=== PATIENT | female | born 1960 | race Caucasian/White ===

== ENCOUNTER 2020-05-05 16:29 | Outpatient (REF) | payer OTHER, SELFPAY | END 2020-05-05 16:30 | disposition home or self-care (01) | LOC: HO.LAB 16:29 | PROVIDERS: Visit Provider Internal Medicine | DX: Z20.828 Contact with and (suspected) exposure to other viral communicable diseases (principal) | CPT/HCPCS: C9803; U0003 ==

== ENCOUNTER 2020-10-10 07:22 | Outpatient (REF) | payer OTHER, SELFPAY ==
[2020-10-10 12:04] LABS: Anion Gap 12 (12-20); Blood Urea Nitrogen 19 mg/dL (9-16); Calcium 8.7 mg/dL (8.4-10.2); Carbon Dioxide 25 mmol/L (22-29); Chloride 107 mmol/L (96-108); Cholesterol 195 mg/dL; Estimated Glomerular Filt Rate > 60; Glucose Fasting 87 mg/dL (60-99); HDL Cholesterol 52 mg/dL; LDL Cholesterol Calculated 119 mg/dl; Potassium 4.2 mmol/L (3.3-5.1); Sodium 140 mmol/L (135-145); Triglycerides 123 mg/dL
[2020-10-10 12:09] LABS: Vitamin D 25-OH Total 24.6 ng/mL (>30)
== END 2020-10-10 07:23 | disposition home or self-care (01) ==
LOC: HO.HMGCLDS 07:22
PROVIDERS: PCP Internal Medicine; Visit Provider Internal Medicine
DX: Z00.00 Encounter for general adult medical examination without abnormal findings (principal); I10 Essential (primary) hypertension; E66.9 Obesity, unspecified; Z78.0 Asymptomatic menopausal state
CPT/HCPCS: 36415; 80048; 80061; 82306

== ENCOUNTER → 2020-11-09 10:28 | Outpatient (BNVA) | payer OTHER, SELFPAY | PROVIDERS: PCP Internal Medicine; Referring Provider Internal Medicine; Visit Provider Surgery ==

== ENCOUNTER 2020-12-22 07:53 | Day surgery (SDC) | payer OTHER, SELFPAY ==
[2020-12-15 13:18] VITALS: BMI 32.8
--- NOTE | 2020-12-21 08:31 | HO.ANESPROP2 ---
Documented by User: Pema Amezcuaney 12/21/20 08:32 HPI - Anesthesia Eval Consult details Narrative: 60yo F for Excision of Neck Mass PMFSH Active Problems Active Problems: All Active Problems (Updated 11/09/20 @ 10:53 by Jovany Hamilton MD) Lipoma of neck (Acute) Vitamin D deficiency (Acute) Past Medical History Medical History History of COVID-19 Lipoma of neck Vitamin D deficiency Family History Family History Father No problems noted. Mother No problems noted. Family/Other No problems noted. Maternal Aunt Colon cancer Surgical History Surgical History History of bunionectomy Hx of colonoscopy Hx of total hysterectomy Social History Social History Alcohol intake: current Patient Tobacco Use Status: Former Tobacco user Years Smoked: 5 yrs Use of substances other than those prescribed or required for medical reasons: No Have you been hit, kicked, punched, or otherwise hurt by someone within the past year? If so, by whom?: No Are you DNR?: No Advance Directives: No Advance Directives Information Provided: Yes Patient : Yes Meds Allergies Allergy/AdvReac Type Severity Reaction Status Date / Time No Known Allergies Allergy Verified 11/09/20 10:35 [No Known Allergies*] Home Medications Medication Instructions Recorded Confirmed Last Taken Type cholecalciferol (vitamin D3) 100 100 mcg PO DAILY 11/09/20 Unknown History mcg (4,000 unit) tablet Exam Exam Date and Time: December 21, 2020 0831 Height,Weight and Vital Signs: Height 5 ft 3 in Weight 83.915 kg Pertinent Lab Results Pertinent Lab Results: Laboratory Tests 10/10/20 07:26 Sodium 140 Potassium 4.2 Chloride 107 Carbon Dioxide 25 BUN 19 H Creatinine 0.69 Assessment and Plan Assessment Anesthesia Assessment: Chart Reviewed Documented by User: Ewa Whitt MD 12/22/20 09:16 PMFSH Past Medical History Medical History History of COVID-19 Lipoma of neck Vitamin D deficiency Patient : Yes Family History Family History Father No problems noted. Mother No problems noted. Family/Other No problems noted. Maternal Aunt Colon cancer Surgical History Surgical History History of bunionectomy Hx of colonoscopy Hx of total hysterectomy History of Problems with Anesthesia: No Social History Social History Alcohol intake: current Patient Tobacco Use Status: Former Tobacco user Years Smoked: 5 yrs Use of substances other than those prescribed or required for medical reasons: No Have you been hit, kicked, punched, or otherwise hurt by someone within the past year? If so, by whom?: No Are you DNR?: No Advance Directives: No Advance Directives Information Provided: Yes Patient : Yes Meds Allergies Allergy/AdvReac Type Severity Reaction Status Date / Time No Known Allergies Allergy Verified 11/09/20 10:35 [No Known Allergies*] Home Medications Medication Instructions Recorded Confirmed Last Taken Type cholecalciferol (vitamin D3) 100 100 mcg PO DAILY 11/09/20 Unknown History mcg (4,000 unit) tablet Exam Airway Mallampati Class: II TM Dist: >3cm Neck ROM: Full Partial: Lower Loose/Missing/Broken Teeth: Yes and Lower Heart: RRR Lungs: CTA Assessment and Plan Assessment Anesthesia Assessment: Anesthesia Plan Discussed Final Anesthetic Review History of Problems with Anesthesia: No NPO: Yes ASA Class: I Final Preanesthetic Review: Meds/Allgs Chart Reviewed, Consent Obtained/Reviewed and Anes Risks/Benef Reviewed Patient Risk: Low Procedure Risk: Intermediate Anesthetic Plan Anesthetic Plan: MAC: Disposition: Standard PACU
[2020-12-22 08:05] VITALS: BP 138/86; PULSE 69; RESP 18; TEMP 36.7; O2SAT 97
[2020-12-22 08:11] VITALS: BMI 32.2
[2020-12-22] MEDS: Lactated Ringers 1,000 ML 100 ML IVCONT (08:25)
--- NOTE | 2020-12-22 09:23 | MHC.SHP ---
Pre-Procedural Eval Section A Date of Service: 12/22/20 Section B Chief Complaint: Lipoma of Neck Allergies: Allergies Allergy/AdvReac Type Severity Reaction Status Date / Time No Known Allergies Allergy Verified 11/09/20 10:35 [No Known Allergies*] Plan I have reviewed the history and physical and performed a pertinent physical examination on my patient. No changes have occurred unless specified.
--- NOTE | 2020-12-22 10:02 | W.PM.OPN ---
Operative Note Operative Note Date of Service: 12/22/20 Narrative: Preop diagnosis: Lipoma posterior neck Postop diagnosis: Lipoma posterior neck Procedure: Excision of lipoma from the posterior neck Surgeon: Jovany Hamilton MD statistical assistant: JOSIE Baker The patient is a 60 year female with note of a mass on the posterior neck consistent with lipoma. She understood the technique of excision and she was aware the risks, benefits, and alternatives. She wanted to proceed with this under anesthesia in view of the size and location. She was brought to the operating room and placed in prone position under monitored anesthesia care. The area of the lipoma the posterior neck was prepped and draped. A surgical time-out had been done and the patient received cefazolin 2 g IV preoperatively. Lidocaine 1% was used to infiltrate the planned line of incision I then made at the incision on the skin overlying the lipoma using a blade 15 and this was carried down through the full-thickness of skin and subcutaneous fat with electrocautery. We continued to dissect with this method until was able to visualize lipomatous mass. I then sharply dissected the lipomatous mass off of the rest of the subcutaneous layer and posteriorly using Metzenbaum scissors as well as with the electrocautery. I the lipoma posteriorly from all the fibrous adhesions until was delivered and sent as specimen The lipoma measured about 5.5 cm by 4 cm. I related the area of excision. I reapposed the subcutaneous layer with Dexon 3-0 sutures. Skin closure was achieved with Dexon 4-0 subcuticular running sutures. Steri-Strips and dressings were applied The patient tolerated the procedure well. There were no complications noted. She was then transferred to the recovery room with stable vital signs
--- NOTE | 2020-12-22 10:05 | PM.OP ---
Brief Operative Note Date of Service: 12/22/20 Pre-op diagnosis: Lipoma posterior neck Post-op diagnosis: same Procedure: Excision lipoma posterior neck Surgeon: Jovany Hamilton MD Anesthesia: MAC Was an Cupola Operator Insulation used for this Procedure?: Yes Cupola Operator Insulation: Usha Baker Estimated blood loss (mL): 3 Pathology: other (Lipoma) Condition: stable Disposition: PACU
[2020-12-22 10:17] VITALS: BP 107/62; PULSE 68; RESP 16; TEMP 36.1; O2SAT 97
[2020-12-22 10:32] VITALS: BP 117/63; PULSE 52; RESP 17; TEMP 36.1; O2SAT 99
== END 2020-12-22 11:03 | disposition home or self-care (01) ==
PROVIDERS: PCP Internal Medicine; Visit Provider Surgery
PROC: (CPT 21552; principal; 2020-12-22 09:30)
DX: D17.0 Benign lipomatous neoplasm of skin and subcutaneous tissue of head, face and neck (principal); E55.9 Vitamin D deficiency, unspecified; Z79.899 Other long term (current) drug therapy; Z87.891 Personal history of nicotine dependence; Z86.16 Personal history of COVID-19
CPT/HCPCS: 21552; 88304; J0690; J1100; J2250; J2405; J3010

== ENCOUNTER → 2021-01-03 10:31 | Outpatient (BNVA) | payer OTHER, SELFPAY | PROVIDERS: PCP Internal Medicine; Visit Provider Surgery ==

== ENCOUNTER → 2021-01-11 09:13 | Outpatient (BNVA) | payer OTHER, SELFPAY | PROVIDERS: PCP Internal Medicine; Visit Provider Surgery ==

== ENCOUNTER 2021-03-05 14:48 | Outpatient (REF) | payer OTHER, SELFPAY ==
--- NOTE | ~2021-03-05 | XR_ITS ---
EXAMINATION: XR KNEE, LEFT CLINICAL INFORMATION: Left knee pain. COMPARISON: None TECHNIQUE: AP, lateral, and sunrise views of the left knee. FINDINGS: Mild medial compartment joint space narrowing. Tiny medial and patellofemoral compartment marginal osteophytes. No osseous erosion. No abnormal soft tissue calcification. No significant joint effusion. No acute fracture or dislocation. XR/XR knee LT 3V IMPRESSION: Mild medial and patellofemoral compartment osteoarthritis.
== END 2021-03-05 14:49 | disposition home or self-care (01) ==
LOC: HO.HMGCX 14:48
PROVIDERS: PCP Internal Medicine; Visit Provider Physician Assistant Medical
DX: M25.562 Pain in left knee (principal)
CPT/HCPCS: 73562

== ENCOUNTER 2021-03-28 08:21 | Outpatient (REF) | payer OTHER, SELFPAY ==
--- NOTE | ~2021-03-28 | XR_ITS ---
EXAMINATION: XR KNEE AP STANDING CLINICAL INFORMATION: Pain COMPARISON: Left knee x-ray February 2018 TECHNIQUE: AP bilateral standing view of the knees was obtained. FINDINGS: Bone alignment is normal. No fracture or dislocation is seen. There is mild bilateral medial femoral tibial joint space narrowing. XR/XR knee standing BI IMPRESSION: Mild bilateral medial femoral tibial joint space narrowing.
== END 2021-03-28 08:22 | disposition home or self-care (01) ==
LOC: HO.HOSX 08:21
PROVIDERS: Visit Provider Physician Assistant
DX: M17.12 Unilateral primary osteoarthritis, left knee (principal); M25.561 Pain in right knee
CPT/HCPCS: 73565

== ENCOUNTER 2021-10-16 07:14 | Outpatient (REF) | payer OTHER, SELFPAY ==
[2021-10-16 12:15] LABS: Alanine Aminotransferase 17 U/L (0-31); Anion Gap 11 (12-20); Aspartate Amino Transferase 13 U/L (5-31); Blood Urea Nitrogen 21 mg/dL (9-16); Calcium 9.3 mg/dL (8.4-10.2); Carbon Dioxide 25 mmol/L (22-29); Chloride 108 mmol/L (96-108); Cholesterol 220 mg/dL; Estimated Glomerular Filt Rate > 60; Glucose Fasting 106 mg/dL (60-99); HDL Cholesterol 51 mg/dL; LDL Cholesterol Calculated 146 mg/dl; Potassium 4.3 mmol/L (3.3-5.1); Sodium 140 mmol/L (135-145); Triglycerides 117 mg/dL
== END 2021-10-16 07:15 | disposition home or self-care (01) ==
LOC: HO.HMGCLDS 07:14
PROVIDERS: Visit Provider Internal Medicine
DX: Z00.01 Encounter for general adult medical examination with abnormal findings (principal); N95.9 Unspecified menopausal and perimenopausal disorder; E55.9 Vitamin D deficiency, unspecified
CPT/HCPCS: 36415; 80048; 80061; 82306; 84450; 84460

== ENCOUNTER 2022-10-19 07:58 | Outpatient (REF) | payer BC, SELFPAY ==
--- NOTE | ~2022-10-19 | MM_ITS ---
EXAMINATION: MM SCREENING DIGITAL BREAST TOMOSYNTHESIS, BILATERAL CLINICAL INFORMATION: Screening. Asymptomatic. The lifetime risk of breast cancer based on the Tyrer-Cuzick Model is 3%. COMPARISON: Outside mammography: 10/29/2021, 10/28/2020, 06/01/2019 ([facility]) TECHNIQUE: Digital breast tomosynthesis is performed in both the craniocaudal and mediolateral oblique views along with computer-aided detection (CAD). Synthesized 2D images are generated from the tomosynthesis. FINDINGS: The breasts are almost entirely fatty (ACR BI-RADS breast composition Category a). Background stromal markings are normal. No developing density or architectural abnormality. There are scattered incidental bilateral ductal secretory calcifications. There are no significant masses, abnormal calcifications, or other abnormalities. The axilla and skin contours are unremarkable. No significant changes from prior outside exams. MM/MM tomosynthesis screening BI IMPRESSION: No mammographic evidence of malignancy. ASSESSMENT: BI-RADS 2: Benign RECOMMENDATION: Routine annual mammography screening. This patient's information was entered into a reminder system with a target due date for their next mammogram.
== END 2022-10-19 07:59 | disposition home or self-care (01) ==
LOC: HO.MAMMO 07:58
PROVIDERS: PCP Internal Medicine; Visit Provider Internal Medicine
DX: Z12.31 Encounter for screening mammogram for malignant neoplasm of breast (principal)
CPT/HCPCS: 77063; 77067

== ENCOUNTER 2022-10-28 07:11 | Outpatient (REF) | payer BC, SELFPAY ==
[2022-10-28 11:48] LABS: Estimated Average Glucose 103 mg/dL; Hemoglobin A1c % 5.2 %
[2022-10-28 11:50] LABS: Cholesterol 212 mg/dL; Glucose Fasting 99 mg/dL (60-99); HDL Cholesterol 50 mg/dL; LDL Cholesterol Calculated 141 mg/dl; Triglycerides 108 mg/dL
[2022-10-28 12:11] LABS: Vitamin D 25-OH Total 33.2 ng/mL (>30)
== END 2022-10-28 07:12 | disposition home or self-care (01) ==
LOC: HO.HMGCLDS 07:11
PROVIDERS: PCP Internal Medicine; Visit Provider Internal Medicine
DX: Z00.01 Encounter for general adult medical examination with abnormal findings (principal); E66.9 Obesity, unspecified; E78.5 Hyperlipidemia, unspecified; E89.40 Asymptomatic postprocedural ovarian failure; M17.12 Unilateral primary osteoarthritis, left knee; R73.01 Impaired fasting glucose
CPT/HCPCS: 36415; 80061; 82306; 82947; 83036

== ENCOUNTER 2023-07-04 11:36 | Outpatient (AMB) | payer BC, SELFPAY ==
--- NOTE | 2023-07-04 12:17 | A.OFFPC_ITS ---
Vital Signs 07/04/23 12:22 Height 5 ft 3 in Weight 200 lb BMI 35.4 BP 130/80 Blood Pressure Location Rt brachial Position Sitting Pulse 81 Pulse Source Pulse Oximeter Pulse Oximetry (%) 97 Oxygen Delivery Method Room Air Intake Visit Reasons: Left knee pain Intake Note: Pt is here today c/o Lt knee pain on going pain since several months Allergies No Known Allergies [No Known Allergies*] Allergy (Verified 07/04/23 12:39) Medication List - Last Reconciled 07/04/23 by Daina Simpson MD cholecalciferol (vitamin D3) 250 mcg PO 2XW naproxen sodium 220 mg PO BID PRN Tobacco use date assessed: 07/04/23 Fall risk assessment: No Falls in past year Last assessed Fall Risk: 07/04/23 Dental Screening Dental Screen Date: 07/04/23 Did you have a dental visit in the last 12 months?: Yes Did you have a dental problem in the last 6 months where you did not have access to dental care?: No Was dental information given to patient?: Patient has dentist HPI Left knee pain HPI Details 62-year-old today complaining of intermi ttent episodes of pain on the anteromedial aspect of left knee joint, which has been present now since December of 2022. Patient states that it started after she swam in her pool, does not know whether she pulled something while swimming. She has been massaging the Voltaren gel to affected area as needed which has been helping and icing joint whenever it starts hurting. It hurts when she gets up from a squatting position otherwise she is able to walk without any discomfort. She had surgical menopause, last bone density scan done was in 2008 which showed normal findings. She also has hyperlipidemia and impaired fasting glucose, has not really been following any diet and is lacking and exercise due to recurrent pain in left knee joint [facility] Medical History Contact with or exposure to mold Surgical menopause Impaired fasting glucose Dyslipidemia Obesity (BMI 30.0-34.9) Lipoma of neck History of COVID-19 Vitamin D deficiency Surgical History Hx of colonoscopy History of bunionectomy Hx of total hysterectomy Family History Father Substance use disorder Mother Substance use disorder Family/Other No problems noted. Maternal Aunt Colon cancer, Onset Age: 70 Daughter Mental health disorder Social History Housing: House Alcohol intake: current Alcohol intake frequency: a few times a month Alcohol type: wine Patient Tobacco Use Status: Former Tobacco user Years Smoked: 5 yrs e-Cigarette/Vaping Use: Never Used service: No Current occupational status: employed Cognitive needs: No Hearing needs: No Vision needs: Yes Questionnaire PHQ-9 Over the last 2 weeks, how often have you been bothered by any of the following problems? 1. Little interest or pleasure in doing things: not at all 2. Feeling down, depressed, or hopeless: not at all 3. Trouble falling or staying asleep, or sleeping too much: not at all 4. Feeling tired or having little energy: not at all 5. Poor appetite or overeating: not at all 6. Feeling bad about yourself - or that you are a failure or have let yourself or your family down: not at all 7. Trouble concentrating on things, such as reading the newspaper or watching television: not at all 8. Moving or speaking so slowly that other people could have noticed. Or the opposite - being so fidgety or restless that you have been moving around a lot more than usual: not at all 9. Thoughts that you would be better off or of hurting yourself in some way: not at all Total score: 0 Depression Screening Interpretation: Negative Depression Screening Done: Yes 70340 - PHQ-9 Billing: Yes Source: Developed by Drs. Bob Emmanuel, Joanna Gentile, Shai Stevens and colleagues, with an educational rosalva from [employer]. Thrive Questionnaire Date Thrive assessed: 07/04/23 I am a: Patient What is your living situation today?: I have a steady place to live Within the past 12 months, did the food you bought not last and you didn't have the money to get more?: Never true Within the past 12 months, did you worry whether your food would run out before you got money to buy more?: Never true Do you have trouble paying for medicines?: No Do you have trouble getting transportation to medical appointments?: No Do you have trouble paying your heating and electricity bill?: No Do you have trouble taking care of your child, family member or friend?: No Do you have trouble with day-to-day activities such as bathing, preparing meals, shopping, managing finances, etc.?: No Are you currently unemployed and looking for a job?: No Are you interested in more education?: No Please select the resources that you would like help with: None THRIVE Score: 0 AUDIT C Alcohol Use Questionnaire (AUDIT-C) 1. How often do you have a drink containing alcohol?: Monthly or less 2. How many drinks containing alcohol do you have on a typical day when you are drinking?: 1 or 2 3. How often do you have six or more drinks on one occasion?: Never Total Score: 1 THU-7 AMB Questionnaire THU-7 Date THU - 7 assessed: 07/04/23 Feeling nervous, anxious, or on edge: 0 = Not at all Worrying too much about different things: 0 = Not at all Being so restless that it is hard to sit still: 0 = Not at all Becoming easily annoyed or irritable: 0 = Not at all Feeling afraid as if something awful might happen: 0 = Not at all Source: Developed by Drs. Bob Emmanuel, Joanna Gentile, Shai Stevens and colleagues, with an educational rosalva from [employer]. THU-7 Assessment Billing THU-7 Assessment Tool: THU-7 Assessment 51997 Review of Systems Const Reports no additional complaints and Reports weight gain Eyes Details: sees Dr Delaney , beginning cataracts forming Denies change in vision ENT Denies nasal congestion and Denies nasal discharge Card Denies chest pain, Denies lightheadedness and Denies dyspnea Resp Denies chest congestion, Denies cough and Denies dyspnea GI Denies abdominal pain, Denies change in bowel habits and Denies heartburn Musc Details: Occasional pain and stiffness in both knees Physical exam (Primary Care) Vital Signs: Last Vital Signs Pulse 81 07/04/23 12:22 BP 130/80 07/04/23 12:22 Pulse Ox 97 07/04/23 12:22 Oxygen Delivery Method Room Air 02/16/24 12:22 BMI result Body Mass Index 35.4 Tobacco/Smoking Status: Tobacco use Status Tobacco use date assessed 07/04/23 07/04/23 12:19 Patient Tobacco Use Status Former Tobacco user 07/04/23 12:19 e-Cigarette/Vaping Use Never Used 07/04/23 12:19 PHQ-9: PHQ-9 Score PHQ-9: Total score 0 07/04/23 13:06 Depression Screening Interpretation: Negative Thrive Assessment: Date of Thrive Assessment Date Thrive assessed 07/04/23 07/04/23 12:19 Const General: comfortable Nutritional Appearance: obese Orientation/consciousness: patient oriented x3 Limitations: no limitations Cardio Rate: regular rate Rhythm: regular rhythm Heart sounds: S1 normal heart sound present and S2 normal heart sound present Neuro General: patient oriented x3, gait normal, tone normal, moves all extremities and no focal motor deficits Extrem Other: Slight swelling noted over medial aspect of left knee, slightly tender to palpation, normal range of motion of joint, no erythema or increased warmth on palpation Assessment and Plan Assessment & Plan (1) Left knee pain: Code(s): M25.562 - Pain in left knee Qualifiers: Chronicity: chronic Qualified Code(s): M25.562 - Pain in left knee; G89.29 - Other chronic pain Plan: X-ray of left knee ordered, referred for physical therapy for further evaluation and management (2) Surgical menopause: Code(s): E89.40 - Asymptomatic postprocedural ovarian failure Plan: Overdue for her osteoporosis screening, patient states that she has had a bone density in 2008 which showed normal bone density in both lumbar spine and left femoral (3) Postmenopause: Code(s): Z78.0 - Asymptomatic menopausal state (4) Impaired fasting glucose: Code(s): R73.01 - Impaired fasting glucose Plan: Repeat fasting blood sugar level or to be done prior to her next appointment in October 2023 (5) Dyslipidemia: Code(s): E78.5 - Hyperlipidemia, unspecified Plan: Reinforced importance of following a low-cholesterol diet, fasting lipid panel ordered to be done in October 2023 prior to her appointment for physical exam (6) Obesity (BMI 30.0-34.9): Code(s): E66.9 - Obesity, unspecified Plan: Discussed need to increase activity and wt reduction. Recommended focusing on improving your health instead of dieting. : Eat Mediterranean diet, limit foods high in fat, sugar, and calories, eat slowly, pay attention to portion sizes, plan your meals ahead of time, start regular cardio exercise at least 30 minutes daily, and increase as tolerated Orders: Orders XR knee LT 4V Today M25.562 - Pain in left knee Alanine Aminotransferase 10/18/23 E66.9 - Obesity, unspecified, E78.5 - Hyperlipidemia, unspecified, E89.40 - Asymptomatic postprocedural ovarian failure, R73.01 - Impaired fasting glucose Aspartate Amino Transferase 10/18/23 E66.9 - Obesity, unspecified, E78.5 - Hyperlipidemia, unspecified, E89.40 - Asymptomatic postprocedural ovarian failure, R73.01 - Impaired fasting glucose Vitamin D 25-OH Total 10/18/23 E66.9 - Obesity, unspecified, E78.5 - Hyperlipide charissa, unspecified, E89.40 - Asymptomatic postprocedural ovarian failure, R73.01 - Impaired fasting glucose PT Evaluation and Treatment Today M25.562 - Pain in left knee XR DEXA axial skeleton Today E89.40 - Asymptomatic postprocedural ovarian failure, Z78.0 - Asymptomatic menopausal state Basic Metabolic Panel Fasting 10/18/23 E66.9 - Obesity, unspecified, E78.5 - Hyperlipidemia, unspecified, E89.40 - Asymptomatic postprocedural ovarian failure, R73.01 - Impaired fasting glucose Lipid Panel 10/18/23 E66.9 - Obesity, unspecified, E78.5 - Hyperlipidemia, unspecified, E89.40 - Asymptomatic postprocedural ovarian failure, R73.01 - Impaired fasting glucose Coding Level of Care Code Est Pt Level 3 (52981) Diagnoses Chronic pain of left knee M25.562; G89.29 Chronicity: chronic Surgical menopause E89.40 Postmenopause Z78.0 Impaired fasting glucose R73.01 Dyslipidemia E78.5 Obesity (BMI 30.0-34.9) E66.9 Additional Codes THU-7 Assessment Billing - THU-7 Assessment Tool: THU-7 Assessment 40804 ([id number])
[2023-07-04 12:22] VITALS: BP 130/80; PULSE 81; O2SAT 97; BMI 35.4
== END 2023-07-04 14:45 | disposition home or self-care (01) ==
PROVIDERS: PCP Internal Medicine; Visit Provider Internal Medicine
DX: M25.562 Pain in left knee (principal); R73.01 Impaired fasting glucose; Z68.35 Body mass index [BMI] 35.0-35.9, adult; E66.9 Obesity, unspecified; G89.29 Other chronic pain; E89.40 Asymptomatic postprocedural ovarian failure; Z78.0 Asymptomatic menopausal state; E78.5 Hyperlipidemia, unspecified
CPT/HCPCS: 99213

== ENCOUNTER 2023-07-04 12:56 | Outpatient (REF) | payer BC, SELFPAY ==
--- NOTE | ~2023-07-04 | XR_ITS ---
EXAMINATION: XR KNEE, LEFT CLINICAL INFORMATION: Left knee pain COMPARISON: Left knee x-rays on 03/05/2021 TECHNIQUE: Four views of the left knee. FINDINGS: BONES: Bony structures are intact. There is no focal bone destruction or periosteal reaction seen. JOINTS: Alignment of joints is normal. SOFT TISSUE: Soft tissue is normal. No radiopaque foreign body or abnormal air collection is seen. XR/XR knee LT 4V IMPRESSION: 1. Unchanged Normal x-rays of left knee. No fracture or dislocation or signs of osteomyelitis are found.
== END 2023-07-04 12:57 | disposition home or self-care (01) ==
LOC: HO.HMGCX 12:56
PROVIDERS: PCP Internal Medicine; Visit Provider Internal Medicine
DX: M25.562 Pain in left knee (principal)
CPT/HCPCS: 73564

== ENCOUNTER 2023-09-02 17:00 | Outpatient (RCR) | payer BC, SELFPAY ==
--- NOTE | 2023-07-29 17:57 | MHC.PT.EP ---
[facility] [place] Office [place] Office [place] Office [address] [phone] F: [phone] F: [phone] F: [phone] F: [phone] Physical Therapy Plan of Care Date of Evaluation: 07/29/23 Date of Surgery: Diagnosis: LEFT knee pain Assessment: Patient is a pleasant 62 y.o. female who is referred to PT by Dr. Calvin MD with Dx of LEFT knee pain. Patient impairments include antalgic gait, limited ROM, weakness. Patient current functional limitations are squatting, kneeling, difficulty getting in/out of bath tubs, ascend/descend stairs. Patient will benefit from skilled PT to address aforementioned impairments and functional limitations to meet established goals. Frequency and Duration: The patient will be seen 2x/week for 4 weeks Short Term Goals: 2 weeks Patient demonstrates consistency and independence with HEP to self manage symptoms. Chcf Goals: 4 weeks squatting, kneeling, difficulty getting in/out of bath tubs, ascend/descend stairs Treatment Plan: Modalities to reduce pain, spasms and effusion. Manual therapy to restore motion and function. Therapeutic exercise to improve strength and flexibility. Neuromuscular re-education for posture and balance. Therapeutic activities to return to functional activities of daily living. Electronically signed by: Oscar Francisco, PT, DPT Please sign and return to therapist. Thank you for your referral.
--- NOTE | 2023-09-02 18:01 | MHC.PT.DC ---
[facility] [place] Office [place] Office [place] Office [address] Te[address] [phone] F: [phone] F: [phone] F: [phone] F: [phone] Physical Therapy Discharge Report Diagnosis: LEFT knee pain Date of Surgery: Date of Evaluation: 07/29/23 Date of Discharge: 09/02/23 Treatments to Date: 7 Cancellations to Date: No Shows to Date: Discharge Status: Achieved Goals Improved Function Independent with HEP Discharge Summary: Kristy shows full AROM in her L knee as well as improvement in strength in L hip and knee with improved functional mobility with stair use, bending and gardening. She is appropriate for and agrees to discharge from PT today. Electronically signed by: Oscar Francisco, PT, DPT Please sign and return to therapist. Thank you for your referral.
== END 2023-09-02 18:01 | disposition home or self-care (01) ==
LOC: HO.PT 17:00
PROVIDERS: PCP Internal Medicine; Visit Provider Internal Medicine
DX: M25.562 Pain in left knee (principal)
CPT/HCPCS: 97110; 97112; 97161; 97530

== ENCOUNTER 2023-10-21 13:59 | Outpatient (REF) | payer BC, SELFPAY ==
--- NOTE | ~2023-10-21 | MM_ITS ---
EXAMINATION: MM SCREENING DIGITAL BREAST TOMOSYNTHESIS, BILATERAL CLINICAL INFORMATION: Screening. Asymptomatic. COMPARISON: Mammography: This study is compared with prior exams dating back to 2019. TECHNIQUE: Digital breast tomosynthesis is performed in both the craniocaudal and mediolateral oblique views along with computer-aided detection (CAD). Synthesized 2D images are generated from the tomosynthesis. FINDINGS: The breasts are almost entirely fatty (ACR BI-RADS breast composition Category a). There are no significant masses, abnormal calcifications, or other abnormalities. Few, benign, unchanged secretory calcifications are present. MM/MM tomosynthesis screening BI IMPRESSION: No mammographic evidence of malignancy. ASSESSMENT: BI-RADS BI-RADS 2 - Benign Findings RECOMMENDATION: Routine annual mammography screening. 1 year F/U This examination should not preclude the clinical evaluation of a suspicious palpable abnormality. This patient's information was entered into a reminder system with a target due date for their next mammogram.
--- NOTE | ~2023-10-21 | MM_ITS ---
EXAMINATION: BONE DENSITOMETRY CLINICAL INDICATION: Asymptomatic menopausal state. COMPARISON: Baseline BD dated 11/11/2008. TECHNIQUE: Using a [employer] DXA System (software version: 13.1) manufactured by [employer], dual-energy x-ray absorptiometry was performed of the lumbar spine and left hip. The images are of good technical quality. Summary results are attached. FINDINGS: LEFT FEMUR, NECK: Current: BMD 0.934 g/cm2, Z-score 0.2, T-score -0.7, normal. Baseline: BMD 0.934 g/cm2. LEFT FEMUR, TOTAL: Current: BMD 0.939 g/cm2, Z-score 0.1, T-score -0.5, normal, 2.0% decrease from baseline (<5% change is not significant). Baseline: BMD 0.958 g/cm2. AP SPINE L1-L4: Current: BMD 1.170 g/cm2, Z-score 0.8, T-score -0.1, normal, 6.4% increase from baseline (<5% change is not significant). Baseline: BMD 1.100 g/cm2. IDENTIFIED RISK FACTORS: Early menopause, secondary osteoporosis, hysterectomy, bilateral oophorectomy. HISTORY OF FRACTURE: None listed. MEDICATIONS: Vitamin D. MM/XR DEXA axial skeleton IMPRESSION: 1. DIAGNOSIS: Normal bone density based on the lowest T-score value of -0.7 in the femoral neck applying World Health Organization criteria. 2. 10-YEAR FRACTURE RISK PREDICTION, FRAX: According to the guidelines, FRAX calculation should only be performed on patients in the osteopenia bone density category. Therefore, FRAX was not performed on this patient. 3. Treatment Recommendations: NOF guidelines recommend consideration for treatment in postmenopausal women and men age 50 and older presenting with the following: -A hip or vertebral (clinical or morphometric) fracture. -T-score less than or equal to -2.5 at the femoral neck or spine after appropriate evaluation to exclude secondary causes. -Low bone mass at the hip or spine and a 10-year fracture probability by FRAX of greater than or equal to 3% for hip fracture or greater than or equal to 20% for major osteoporotic fracture based on the [place] adapted WHO algorithm. 4. Other Recommendations: All treatment decisions require clinical judgment and consideration of individual patient factors, including patient preferences, comorbidities, previous drug use, risk factors not captured in the FRAX model (e.g. frailty, falls, vitamin D deficiency, increased bone turnover, interval significant decline in bone density) and possible under or overestimation of fracture risk by FRAX. FUTURE SCAN RECOMMENDATION: People with diagnosed cases of osteoporosis or at high risk for fracture should have regular bone mineral density tests. For patients eligible for Medicare, routine testing is allowed once every 2 years. The testing frequency can be increased to one year for patients who have rapidly progressing disease, those who are receiving or discontinuing medical therapy to restore bone mass, or have additional risk factors.
== END 2023-10-21 14:00 | disposition home or self-care (01) ==
LOC: HO.MAMMO 13:59
PROVIDERS: PCP Internal Medicine; Visit Provider Internal Medicine
DX: Z12.31 Encounter for screening mammogram for malignant neoplasm of breast (principal); Z13.820 Encounter for screening for osteoporosis; Z78.0 Asymptomatic menopausal state; E89.40 Asymptomatic postprocedural ovarian failure
CPT/HCPCS: 77063; 77067; 77080

== ENCOUNTER → 2023-10-21 14:30 | Outpatient (BNV) | payer BC, SELFPAY | PROVIDERS: PCP Internal Medicine; Visit Provider Radiology Diagnostic Radiology | DX: Z12.31 Encounter for screening mammogram for malignant neoplasm of breast (principal) | CPT/HCPCS: 77063; 77067 ==

== ENCOUNTER 2023-10-24 07:07 | Outpatient (REF) | payer BC, SELFPAY ==
[2023-10-24 11:14] LABS: Alanine Aminotransferase 13 U/L (0-31); Anion Gap 9 (12-20); Aspartate Amino Transferase 12 U/L (5-31); Blood Urea Nitrogen 18 mg/dL (9-16); Calcium 9.3 mg/dL (8.4-10.2); Carbon Dioxide 29 mmol/L (22-29); Chloride 108 mmol/L (96-108); Cholesterol 197 mg/dL (<200); Estimated Glomerular Filt Rate > 60; Glucose Fasting 95 mg/dL (60-99); HDL Cholesterol 50 mg/dL (>40); LDL Cholesterol Calculated 123 mg/dL (<100); Potassium 4.2 mmol/L (3.3-5.1); Sodium 142 mmol/L (135-145); Triglycerides 123 mg/dL (<150)
[2023-10-24 11:18] LABS: Vitamin D 25-OH Total 47.8 ng/mL (>30)
== END 2023-10-24 07:08 | disposition home or self-care (01) ==
LOC: HO.HMGCLDS 07:07
PROVIDERS: PCP Internal Medicine; Visit Provider Internal Medicine
DX: E66.9 Obesity, unspecified (principal); E78.5 Hyperlipidemia, unspecified; R73.01 Impaired fasting glucose; E89.40 Asymptomatic postprocedural ovarian failure
CPT/HCPCS: 36415; 80048; 80061; 82306; 84450; 84460

== ENCOUNTER 2023-10-29 08:01 | Outpatient (AMB) | payer BC, SELFPAY ==
--- NOTE | 2023-10-29 08:08 | MHC.PC.OV ---
Vital Signs 10/29/23 08:15 Height 5 ft 3 in Weight 194 lb BMI 34.4 BP 122/78 Blood Pressure Location Rt brachial Position Sitting Pulse 64 Pulse Source Pulse Oximeter Pulse Oximetry (%) 96 Oxygen Delivery Method Room Air Intake Visit Reasons: PE Intake Note: Pt is here today for her PE: Last mammogram 10/21/23, bone density scan 10/21/23 and colonoscopy 11/30/19 Allergies No Known Allergies [No Known Allergies*] Allergy (Verified 10/29/23 08:28) Medication List - Last Reconciled 10/29/23 by Daina Simpson MD amoxicillin 500 mg PO Q8H cholecalciferol (vitamin D3) 50 mcg PO DAILY naproxen sodium 220 mg PO BID PRN Tobacco use date assessed: 10/29/23 Fall risk assessment: No Falls in past year Last assessed Fall Risk: 10/29/23 Dental Screening Dental Screen Date: 10/29/23 Did you have a dental visit in the last 12 months?: Yes Did you have a dental problem in the last 6 months where you did not have access to dental care?: Yes Was dental information given to patient?: Patient has dentist HPI PE HPI Details 63-year-old lady here today for her physical exam. She has history of dyslipidemia, impaired fasting glucose and osteoarthritis, currently stable controlled on present treatment. Up-to-date with her screening mammogram, last done 10/21/2023, together with her bone density scan, with official reading still pending. She is up-to-date with her screening colonoscopy done 11/30/2019 with hemorrhoids and mild diverticulosis seen, repeat due again in 2029. [facility] Medical History Contact with or exposure to mold Surgical menopause Impaired fasting glucose Dyslipidemia Obesity (BMI 30.0-34.9) Lipoma of neck History of COVID-19 Vitamin D deficiency Surgical History Hx of colonoscopy History of bunionectomy Hx of total hysterectomy Family History Father Substance use disorder Mother Substance use disorder Family/Other No problems noted. Maternal Aunt Colon cancer, Onset Age: 70 Daughter Mental health disorder Social History Housing: House Alcohol intake: current Alcohol intake frequency: a few times a month Alcohol type: wine Patient Tobacco Use Status: Former Tobacco user Years Smoked: 5 yrs e-Cigarette/Vaping Use: Never Used service: No Current occupational status: employed Cognitive needs: No Hearing needs: No Vision needs: Yes Questionnaire PHQ-9 Over the last 2 weeks, how often have you been bothered by any of the following problems? 1. Little interest or pleasure in doing things: not at all 2. Feeling down, depressed, or hopeless: not at all 3. Trouble falling or staying asleep, or sleeping too much: not at all 4. Feeling tired or having little energy: not at all 5. Poor appetite or overeating: not at all 6. Feeling bad about yourself - or that you are a failure or have let yourself or your family down: not at all 7. Trouble concentrating on things, such as reading the newspaper or watching television: not at all 8. Moving or speaking so slowly that other people could have noticed. Or the opposite - being so fidgety or restless that you have been moving around a lot more than usual: not at all 9. Thoughts that you would be better off or of hurting yourself in some way: not at all Total score: 0 Depression Screening Interpretation: Negative Depression Screening Done: Yes 04919 - PHQ-9 Billing: Yes Source: Developed by Drs. Bob Emmanuel, Joanna Gentile, Shai Stevens and colleagues, with an educational rosalva from [employer]. Thrive Questionnaire Date Thrive assessed: 07/04/23 I am a: Parent/Caregiver What is your living situation today?: I have a steady place to live Within the past 12 months, did the food you bought not last and you didn't have the money to get more?: Never true Within the past 12 months, did you worry whether your food would run out before you got money to buy more?: Never true Do you have trouble paying for medicines?: No Do you have trouble getting transportation to medical appointments?: No Do you have trouble paying your heating and electricity bill?: No Do you have trouble taking care of your child, family member or friend?: No Do you have trouble with day-to-day activities such as bathing, preparing meals, shopping, managing finances, etc.?: No Are you currently unemployed and looking for a job?: No Are you interested in more education?: No Please select the resources that you would like help with: None THRIVE Score: 0 AUDIT C Alcohol Use Questionnaire (AUDIT-C) 1. How often do you have a drink containing alcohol?: Monthly or less 2. How many drinks containing alcohol do you have on a typical day when you are drinking?: 1 or 2 3. How often do you have six or more drinks on one occasion?: Never Total Score: 1 THU-7 AMB Questionnaire TUH-7 Date THU - 7 assessed: 10/29/23 Feeling nervous, anxious, or on edge: 0 = Not at all Not being able to stop or control worryin = Not at all Worrying too much about different things: 0 = Not at all Trouble relaxin = Not at all Being so restless that it is hard to sit still: 0 = Not at all Becoming easily annoyed or irritable: 0 = Not at all Feeling afraid as if something awful might happen: 0 = Not at all Total THU-7 score (0-4 normal; 5-9 mild; 10-14 moderate; 15-21 severe): 0 Source: Developed by Drs. Bob Emmanuel, Joanna Gentile, Shai Stevens and colleagues, with an educational rosalva from [employer]. THU-7 Assessment Billing THU-7 Assessment Tool: THU-7 Assessment 51477 Review of Systems Const Reports no additional complaints Eyes Details: Dr Amado bautista Denies change in vision ENT Details: Dental prophylaxis every 6 months Denies nasal congestion and Denies nasal discharge Card Denies chest pain, Denies lightheadedness and Denies dyspnea Resp Denies chest congestion, Denies cough and Denies dyspnea GI Denies abdominal pain, Denies change in bowel habits and Denies heartburn Reports no additional complaints Musc Details: Occasional pain and stiffness in both knees, more on the left side Skin/Breast Denies breast pain, Denies breast mass and Denies rash Neuro Reports no additional complaints Psych Reports no additional complaints Endo Reports no additional complaints Ge/Lymph Reports no additional complaints Aller/Immun Reports no additional complaints Physical exam (Primary Care) Vital Signs: Last Vital Signs Pulse 64 10/29/23 08:15 BP 122/78 10/29/23 08:15 Pulse Ox 96 10/29/23 08:15 Oxygen Delivery Method Room Air 10/29/23 08:15 BMI result Body Mass Index 34.4 Tobacco/Smoking Status: Tobacco use Status Tobacco use date assessed 10/29/23 10/29/23 08:17 Patient Tobacco Use Status Former Tobacco user 10/29/23 08:10 e-Cigarette/Vaping Use Never Used 10/29/23 08:10 PHQ-9: PHQ-9 Score PHQ-9: Total score 0 10/29/23 08:29 Depression Screening Interpretation: Negative Thrive Assessment: Date of Thrive Assessment Date Thrive assessed 07/04/23 10/29/23 08:10 Advance Care Planning discussion: Completed/Scanned Date of discussion: 10/29/23 Forms completed: Health Care Proxy and [facility]OL[facility] Time spent: 16-45 minutes Actual minutes spent: 16 Const General: comfortable Nutritional Appearance: obese Orientation/consciousness: patient oriented x3 Limitations: no limitations HENMT Head: Yes normocephalic Ears: hearing grossly normal bilaterally, external ears normal, TM's normal bilaterally and EAC's normal General nose exam: Normal external nose present Face and sinus: Yes face symmetric Mouth: Normal oral and palatal mucosa present, oropharynx normal and moist mucous membranes Eyes General: appearance normal, both eyes and all related structures Neck Neck: Yes full ROM, Yes no lymphadenopathy and Yes supple Thyroid: Thyroid normal (Nonpalpable) Chest Chest palpation & inspection: normal inspection of the chest Breast/axilla palpation: normal palpation of the breasts Resp Auscultation: clear to auscultation bilaterally Cardio Rate: regular rate Rhythm: regular rhythm Heart sounds: S1 normal heart sound present and S2 normal heart sound present GI Inspection: Yes obesity Palpation (GI): Soft to palpation, nontender, no guarding and no masses Skin General skin exam: no rashes or lesions noted Neuro General: patient oriented x3, gait normal, tone normal, moves all extremities and no focal motor deficits Extrem General: Yes full ROM, Yes no joint enlargement, Yes no clubbing, cyanosis or edema and Yes normal gait Psych Appearance: grossly normal and well kempt Mental Status: mental status grossly normal Speech and movement: Normal speech and movement present Affect: normal affect Thought process: Normal thought process present Immunizations pneumoc 20-corona conj-dip cr(PF) 0.5 mL IM syringe Performing Provider: Daina Simpson MD Performing Location: [facility] Administered by: IVÁN Solis on 10/29/23 08:50 Dose Route Admin Location Dispensed Lot Number Expiration Date NDC Cushion Stuffer 0.5 mL IM Right Deltoid 0.5 mL [id number] 10/16/24 1528-7211-16 [employer] VIS Given Date VIS Provided VIS Publication Date 10/29/23 Single Vaccine 21 Eligibility Eligibility Date Funding Source Not VFC Eligible 10/29/23 Private Results Reviewed Results Reviewed: Name: Kristy Dumont Age/Sex: 63/F : 1960 Unit#: [id number] Attend Dr: Daina Simpson MD Re10/24/23 Status: DEP REF Location: [facility] Disch: SPEC : [id number] MORGAN: 10/24/23 STATUS: COMP REQ : [id number] RECD: 10/24/23-[address]: Daina Simpson MD COMP: 10/24/23 ENTERED: 10/24/[address]: ORDERED: Met Prof Fast, AST, ALT, Lipid Panel, Vitamin D 25-OH Test Result Flag Reference Sodium 142 135-145 mmol/L Potassium 4.2 3.3-5.1 mmol/L CL 108 96-108 mmol/L CO2 29 22-29 mmol/L Gap 9 L 12-20 BUN 18 H 9-16 mg/dL Creat 0.71 0.5-1.4 mg/dL EGFR > 60 NOTE: For -[place] individuals, multiply the result by 1.210. Chronic Kidney Disease: Estimated GFR < 60 mL/min/1.73m2 Severe Kidney Disease: Estimated GFR < 15 mL/min/1.73m2 FBS 95 60-99 mg/dL CA 9.3 8.4-10.2 mg/dL AST (GOT) 12 5-31 U/L ALT (GPT) 13 0-31 U/L Triglyceride 123 <150 mg/dL Desirable Triglyceride: less than 150 mg/dL Borderline High Triglyceride 150-199 mg/dL High Triglyceride: 200-499 mg/dL Very High Triglyceride: greater than or equal to 5OO mg/dL Cholesterol 197 <200 mg/dL Desirable Cholesterol: less than 200 mg/dL Borderline High Cholesterol: 200-239 mg/dL High Cholesterol: greater than 239 mg/dL LDL Calculated 123 H <100 mg/dL Desirable LDL: less than 100 mg/dL Near Optimal/Above Optimal LDL: 110-129 mg/dL Borderline High LDL: 130-159 mg/dL High LDL: 160-189 mg/dL Very High LDL: greater than or equal to 190 mg/dL HDL 50 >40 mg/dL Desirable HDL: greater than 40 mg/dL Note: This HDL assay may give artificially low results in patients with liver disease. Vit D 25-OH Tot 47.8 >30 ng/mL Health Based Reference Values* < 20 ng/mL Deficient 20-30 ng/mL Insufficient > 30 ng/mL Sufficient Assessment and Plan Assessment & Plan (1) Annual visit for general adult medical examination with abnormal findings: Code(s): Z00.01 - Encounter for general adult medical examination with abnormal findings Plan: Recent fasting lab results reviewed with patient. Continue dental visit every 6 months and regular eye exams, at least every 2 years. Take adequate calcium in diet and vitamin-D 3 at 2000 IU per cap once a day, in addition to weight-bearing exercises to help maintain good muscle tone and weight control. Instructed to do self-breast exam, and is up-to-date with her yearly mammogram, and bone density scan. Up-to-date with her screening colonoscopy due again in 2030. Up-to-date with all her vaccinations, Prevnar 20 given today (2) Dyslipidemia: Code(s): E78.5 - Hyperlipidemia, unspecified Plan: Reviewed recent fasting lipid profile with patient with levels within normal limits . Continue with adherence to low-cholesterol diet and regular exercise, at least 30 minutes 3 to 4 times a week. Advised patient to make healthy food choices, eat more fruits, vegetables, whole grains, wild caught fish and low-fat dairy. Limit amount of meat and fried or fatty food products, as well as processed foods and fast foods. (3) Obesity (BMI 30.0-34.9): Code(s): E66.9 - Obesity, unspecified Plan: Your BMI is above the ideal range. Recommended focusing on improving health instead of dieting. Mediterranean diet is a healthy diet that helps, limit food high in fat, sugar, and calories. Eat slowly, pay attention to portion sizes, plan your meals ahead of time, continue regular physical activity, at least 150 minutes of moderate intensity exercise, or 90 minutes per week of vigorous exercise. . There are many health problems associated with being overweight/obese, so it is important to improve your diet and exercise. There are medications and surgical options available, but Lifestyle changes are the 1st step. (4) Osteoarthritis of left knee: Code(s): M17.12 - Unilateral primary osteoarthritis, left knee Qualifiers: Osteoarthritis type: primary Qualified Code(s): M17.12 - Unilateral primary osteoarthritis, left knee Plan: Takes naproxen as needed, Orders: Orders Pneumococcal 20 Immunization Today Z23 - Encounter for immunization Coding Level of Care Code Est Pt Prev Care >65y(97048) Diagnoses Annual visit for general adult medical examination with abnormal findings Z00.01 Dyslipidemia E78.5 Obesity (BMI 30.0-34.9) E66.9 Primary osteoarthritis of left knee M17.12 Osteoarthritis type: primary Additional Codes Vital Signs *Quality* - Advance Care Planning discussion: Completed/Scanned ([id number]) Vital Signs *Quality* - Time spent: 16-45 minutes ([id number]) THU-7 Assessment Billing - THU-7 Assessment Tool: THU-7 Assessment 61616 ([id number])
[2023-10-29 08:15] VITALS: BP 122/78; PULSE 64; O2SAT 96; BMI 34.4
== END 2023-10-29 08:55 | disposition home or self-care (01) ==
PROVIDERS: PCP Internal Medicine; Visit Provider Internal Medicine
DX: Z00.00 Encounter for general adult medical examination without abnormal findings (principal); E66.9 Obesity, unspecified; Z68.34 Body mass index [BMI] 34.0-34.9, adult; Z23 Encounter for immunization; E78.5 Hyperlipidemia, unspecified; M17.12 Unilateral primary osteoarthritis, left knee
CPT/HCPCS: 1123F; 90471; 90677; 99397

== ENCOUNTER 2024-10-29 15:37 | Outpatient (REF) | payer BC, SELFPAY | END 2024-10-29 15:38 | disposition home or self-care (01) | LOC: HO.MAMMO 15:37 | PROVIDERS: Visit Provider Internal Medicine | DX: Z12.31 Encounter for screening mammogram for malignant neoplasm of breast (principal) | CPT/HCPCS: 77063; 77067 ==

== ENCOUNTER → 2024-10-29 16:00 | Outpatient (BNV) | payer BC, SELFPAY | PROVIDERS: Visit Provider Internal Medicine | DX: Z12.31 Encounter for screening mammogram for malignant neoplasm of breast (principal) | CPT/HCPCS: 77063; 77067 ==

== ENCOUNTER 2024-11-25 07:17 | Outpatient (REF) | payer BC, SELFPAY ==
[2024-11-25 10:46] LABS: Hematocrit 37.2 % (37.0-47.0); Hemoglobin 12.6 g/dl (12.0-16.0)
[2024-11-25 10:50] LABS: Hemoglobin A1C 111.1177 umol/L; Total Hemoglobin (HGBA1C) 3255.6244 umol/L
[2024-11-25 10:55] LABS: Cholesterol 188 mg/dL (<200); HDL Cholesterol 51 mg/dL (>40); Triglycerides 95 mg/dL (<150)
== END 2024-11-25 07:18 | disposition home or self-care (01) ==
LOC: HO.HMGCLDS 07:17
PROVIDERS: PCP Internal Medicine; Visit Provider Internal Medicine
DX: R73.01 Impaired fasting glucose (principal); E66.9 Obesity, unspecified; E78.5 Hyperlipidemia, unspecified; Z78.0 Asymptomatic menopausal state
CPT/HCPCS: 36415; 80061; 82306; 82947; 83036; 85014; 85018

== ENCOUNTER 2024-11-29 08:33 | Outpatient (AMB) | payer BC, SELFPAY ==
--- NOTE | 2024-11-29 08:59 | MHC.PC.OV ---
Vital Signs 11/29/24 09:14 Height 5 ft 3 in Weight 171 lb BMI 30.3 BP 112/80 Blood Pressure Location Lt brachial Position Sitting Respiration 16 Pulse 84 Pulse Source Pulse Oximeter Temp 98.5 F Temp Source Oral Pulse Oximetry (%) 98 Oxygen Delivery Method Room Air Intake Visit Reasons: PE Intake Note: Pt is here today for her PE: last mammgram 10/29/24, bone density scan 11/30/19 Allergies No Known Allergies (No Known Allergies*) Allergy (Verified 11/29/24 09:30) Medication List - Last Reconciled 11/29/24 by Daina Simpson MD cholecalciferol (vitamin D3) 50 mcg PO DAILY naproxen sodium 220 mg PO BID PRN Tobacco use date assessed: 11/29/24 Fall risk assessment: 1 Fall in past year Last assessed Fall Risk: 11/29/24 Dental Screening Dental Screen Date: 11/29/24 HPI PE HPI Details 64-year-old lady with history of dyslipidemia, impaired fasting glucose, and obesity, here today for her physical exam. Up-to-date with her breast cancer screening, with last mammgram done 10/29/24, up-to-date with her bone density scan, last done 10/21/2023 which showed normal results. Last colonoscopy was done by Dr. Lloyd in 2019, due again in 2026. [facility] Medical History Contact with or exposure to mold Surgical menopause Impaired fasting glucose Dyslipidemia Obesity (BMI 30.0-34.9) Lipoma of neck History of COVID-19 Vitamin D deficiency Surgical History Hx of colonoscopy History of bunionectomy Hx of total hysterectomy Family History Father Substance use disorder Mother Substance use disorder Family/Other No problems noted. Maternal Aunt Colon cancer, Onset Age: 70 Daughter Mental health disorder Social History Housing: House Alcohol intake: current Alcohol intake frequency: a few times a month Alcohol type: wine Patient Tobacco Use Status: Former Tobacco user Years Smoked: 5 yrs e-Cigarette/Vaping Use: Never Used service: No Current occupational status: employed Cognitive needs: No Hearing needs: No Vision needs: Yes Questionnaire PHQ-9 Over the last 2 weeks, how often have you been bothered by any of the following problems? 1. Little interest or pleasure in doing things: not at all 2. Feeling down, depressed, or hopeless: not at all 3. Trouble falling or staying asleep, or sleeping too much: not at all 4. Feeling tired or having little energy: not at all 5. Poor appetite or overeating: not at all 6. Feeling bad about yourself - or that you are a failure or have let yourself or your family down: not at all 7. Trouble concentrating on things, such as reading the newspaper or watching television: not at all 8. Moving or speaking so slowly that other people could have noticed. Or the opposite - being so fidgety or restless that you have been moving around a lot more than usual: not at all 9. Thoughts that you would be better off or of hurting yourself in some way: not at all Total score: 0 Depression Screening Interpretation: Negative Depression Screening Done: Yes 79243 - PHQ-9 Billing: Yes Source: Developed by Drs. Bob Emmanuel, Joanna Gentile, Shai Stevens and colleagues, with an educational rosalva from [employer]: turn off the lights. Thrive Questionnaire Date Thrive assessed: 11/23/24 I am a: Patient What is your living situation today?: I have a steady place to live Within the past 12 months, did the food you bought not last and you didn't have the money to get more?: Never true Within the past 12 months, did you worry whether your food would run out before you got money to buy more?: Never true Do you have trouble paying for medicines?: No Do you have trouble getting transportation to medical appointments?: No Do you have trouble paying your heating and electricity bill?: No Do you have trouble taking care of your child, family member or friend?: No Do you have trouble with day-to-day activities such as bathing, preparing meals, shopping, managing finances, etc.?: No Are you currently unemployed and looking for a job?: No Are you interested in more education?: No Please select the resources that you would like help with: None Currently or been in a relationship where the following occur: No concerns reported THRIVE Score: 0 AUDIT C Alcohol Use Questionnaire (AUDIT-C) 1. How often do you have a drink containing alcohol?: Never Total Score: 0 THU-7 AMB Questionnaire THU-7 Date THU - 7 assessed: 11/29/24 Feeling nervous, anxious, or on edge: 0 = Not at all Not being able to stop or control worryin = Not at all Worrying too much about different things: 0 = Not at all Trouble relaxin = Not at all Being so restless that it is hard to sit still: 0 = Not at all Becoming easily annoyed or irritable: 0 = Not at all Feeling afraid as if something awful might happen: 0 = Not at all Total THU-7 score (0-4 normal; 5-9 mild; 10-14 moderate; 15-21 severe): 0 Source: Developed by Drs. Bob Emmanuel, Joanna Gentile, Shai Stevens and colleagues, with an educational rosalva from [employer]: turn off the lights. THU-7 Assessment Billing THU-7 Assessment Tool: THU-7 Assessment 60770 Review of Systems Const Reports no additional complaints Eyes Details: Dr Delaney Denies change in vision ENT Details: Dental cleaning every 6 month Denies nasal congestion and Denies nasal discharge Card Denies chest pain, Denies lightheadedness and Denies dyspnea Resp Denies chest congestion, Denies cough and Denies dyspnea GI Denies abdominal pain, Denies change in bowel habits and Denies heartburn Reports no additional complaints Musc Details: Occasional pain and stiffness in both knees, more on the left side, improved since she has started losing weight Skin/Breast Denies breast pain, Denies breast mass and Denies rash Neuro Reports no additional complaints Psych Reports no additional complaints Endo Reports no additional complaints Ge/Lymph Reports no additional complaints Aller/Immun Reports no additional complaints Physical exam (Primary Care) Vital Signs: Last Vital Signs Temp 98.5 F 11/29/24 09:14 Pulse 84 11/29/24 09:14 Resp 16 11/29/24 09:14 BP 112/80 11/29/24 09:14 Pulse Ox 98 11/29/24 09:14 Oxygen Delivery Method Room Air 11/29/24 09:14 BMI result Body Mass Index 30.3 Tobacco/Smoking Status: Tobacco use Status Tobacco use date assessed 11/29/24 11/29/24 09:01 Patient Tobacco Use Status Former Tobacco user 11/29/24 08:59 e-Cigarette/Vaping Use Never Used 11/29/24 08:59 PHQ-9: PHQ-9 Score PHQ-9: Total score 0 12/05/24 23:17 Depression Screening Interpretation: Negative Thrive Assessment: Date of Thrive Assessment Date Thrive assessed 11/23/24 11/29/24 08:59 Currently or been in a relationship where the following occur: No concerns reported Const General: comfortable Nutritional Appearance: obese Orientation/consciousness: patient oriented x3 HENMT Head: Yes normocephalic Ears: hearing grossly normal bilaterally, external ears normal, TM's normal bilaterally and EAC's normal General nose exam: Normal external nose present Face and sinus: Yes face symmetric Mouth: Normal oral and palatal mucosa present, oropharynx normal and moist mucous membranes Eyes General: appearance normal, both eyes and all related structures Neck Neck: Yes full ROM, Yes no lymphadenopathy and Yes supple Thyroid: Thyroid normal (Nonpalpable) Chest Chest palpation & inspection: normal inspection of the chest Breast/axilla palpation: normal palpation of the breasts Resp Auscultation: clear to auscultation bilaterally Cardio Rate: regular rate Rhythm: regular rhythm Heart sounds: S1 normal heart sound present and S2 normal heart sound present GI Inspection: Yes obesity Palpation (GI): Soft to palpation, nontender, no guarding and no masses Skin General skin exam: no rashes or lesions noted Neuro General: patient oriented x3, gait normal, tone normal, moves all extremities and no focal motor deficits Extrem General: Yes full ROM, Yes no joint enlargement, Yes no clubbing, cyanosis or edema and Yes normal gait Psych Appearance: grossly normal and well kempt Mental Status: mental status grossly normal Speech and movement: Normal speech and movement present Affect: normal affect Thought process: Normal thought process present Results Reviewed Results Reviewed: Name: Kristy Dumont Age/Sex: 64/F : 1960 Unit#: [id number] Attend Dr: Daina Simpson MD Re11/25/24 Status: DEP REF Location: [facility] Disch: SPEC : [id number] MORGAN: 11/25/24 STATUS: COMP REQ : [id number] RECD: 11/25/24-[address]: Daina Simpson MD COMP: 11/25/241046 ENTERED: 11/25/[address]: ORDERED: HGB and HCT Test Result Flag Reference HGB 12.6 12.0-16.0 g/dl HCT 37.2 37.0-47.0 % Name: Kristy Dumont Age/Sex: 64/F : 1960 Unit#: [id number] Attend Dr: Daina Simpson MD Re11/25/24 Status: DEP REF Location: [facility] Disch: SPEC : [id number] MORGAN: 11/25/24 STATUS: COMP REQ : [id number] RECD: 11/25/24-[address]: Daina Simpson MD COMP: 11/25/241126 ENTERED: 11/25/[address]: ORDERED: Glu Fasting, Lipid Panel, Vitamin D 25-OH Test Result Flag Reference FBS 105 H 60-99 mg/dL A fasting glucose from 100-125 mg/dl is considered impaired (pre-diabetes). Triglyceride 95 <150 mg/dL Desirable Triglyceride: less than 150 mg/dL Borderline High Triglyceride 150-199 mg/dL High Triglyceride: 200-499 mg/dL Very High Triglyceride: greater than or equal to 5OO mg/dL Cholesterol 188 <200 mg/dL Desirable Cholesterol: less than 200 mg/dL Borderline High Cholesterol: 200-239 mg/dL High Cholesterol: greater than 239 mg/dL LDL Calculated 118 H <100 mg/dL Desirable LDL: less than 100 mg/dL Near Optimal/Above Optimal LDL: 110-129 mg/dL Borderline High LDL: 130-159 mg/dL High LDL: 160-189 mg/dL Very High LDL: greater than or equal to 190 mg/dL HDL 51 >40 mg/dL Desirable HDL: greater than 40 mg/dL Note: This HDL assay may give artificially low results in patients with liver disease. Vitamin D 25-OH 41.0 >30 ng/mL Health Based Reference Values* < 20 ng/mL Deficient 20-30 ng/mL Insufficient > 30 ng/mL Sufficient Laboratory Tests 11/25/24 07:20 Estimat Average Glucose 105 Hemoglobin A1c % 5.3 Coding Level of Care Code Est Pt Prev Care >65y(25293) Diagnoses Annual visit for general adult medical examination with abnormal findings Z00.01 Dyslipidemia E78.5 Impaired fasting glucose R73.01 Obesity (BMI 30.0-34.9) E66.9 Additional Codes THU-7 Assessment Billing - THU-7 Assessment Tool: THU-7 Assessment 09704 ([id number]) PHQ-9 - 77567 - PHQ-9 Billing: Yes ([id number]) Assessment & Plan Assessment & Plan (1) Annual visit for general adult medical examination with abnormal findings: Code(s): Z00.01 - Encounter for general adult medical examination with abnormal findings Plan: Recent fasting lab results reviewed with patient. Continue with regular dental visit every 6 months and regular eye exams, at least every 2 years. Take adequate calcium in diet and vitamin-D 3 at 2000 IU per cap once a day, in addition to weight-bearing exercises to help maintain good muscle tone and weight control. Instructed to do self-breast exam, and continue with yearly mammogram, . Up-to-date with her cervical cancer screening and bone density scan.. Up-to-date with her screening colonoscopy and vaccinations (2) Dyslipidemia: Code(s): E78.5 - Hyperlipidemia, unspecified Category: Medical Plan: Recent fasting lipids are within normal limits. Continue with adherence to healthy eating habits and regular exercise. (3) Impaired fasting glucose: Code(s): R73.01 - Impaired fasting glucose Category: Medical Plan: Your previous fasting blood sugars were elevated above 100 mg/dL. Impaired glucose metabolism increases the risk for developing diabetes mellitus type 2, as well as heart attack and stroke later on. Lifestyle changes that promotes weight loss, healthy eating habits, and regular exercise are important, and can prevent the progression to diabetes (4) Obesity (BMI 30.0-34.9): Code(s): E66.9 - Obesity, unspecified Category: Medical Plan: Reinforced importance of following a healthy diet and getting at least 150 minutes of moderate intensity exercise in a week
[2024-11-29 09:14] VITALS: BP 112/80; PULSE 84; RESP 16; TEMP 36.9; O2SAT 98; BMI 30.3
== END 2024-11-29 09:51 | disposition home or self-care (01) ==
LOC: HO.HMCC 08:34
PROVIDERS: PCP Internal Medicine; Visit Provider Internal Medicine
DX: Z00.01 Encounter for general adult medical examination with abnormal findings (principal); E66.9 Obesity, unspecified; Z68.30 Body mass index [BMI] 30.0-30.9, adult; E78.5 Hyperlipidemia, unspecified; R73.01 Impaired fasting glucose

== ENCOUNTER → 2024-11-29 08:33 | Outpatient (BNVA) | payer BC, SELFPAY | PROVIDERS: PCP Internal Medicine; Visit Provider Internal Medicine | DX: Z00.01 Encounter for general adult medical examination with abnormal findings (principal); E78.5 Hyperlipidemia, unspecified; R73.01 Impaired fasting glucose; E66.9 Obesity, unspecified; Z68.30 Body mass index [BMI] 30.0-30.9, adult; Z13.31 Encounter for screening for depression; Z13.39 Encounter for screening examination for other mental health and behavioral disorders | CPT/HCPCS: 96127 ==

== ENCOUNTER 2025-03-08 12:25 | Outpatient (AMB) | payer BC, SELFPAY ==
--- NOTE | 2025-03-08 12:36 | AM.OFFVISNUR ---
Intake Visit Reasons: Flu shot Allergies No Known Allergies (No Known Allergies*) Allergy (Verified 11/29/24 09:30) Office Procedures Flu Questionnaire Does the patient have a severe egg allergy?: No Does the patient have severe life threatening allergies?: No Does the patient have a fever or illness today?: No Has the patient ever had Guillain-[place] Syndrome?: No Has the patient ever had any past reaction to a flu shot?: No Immunizations Fluarix 9827-1046 (PF) 45 mcg (15 mcg x 3)/0.5 mL IM syringe Performing Provider: Daina Simpson MD [place] Location[place] [facility] [place] [facility] Administered by: Emma Coulter on 03/08/25 12:36 Dose Route Admin Location Dispensed Lot Number Expiration Date [facility] [employer]st 0.5 mL IM Right Deltoid 0.5 mL [id number] 11/15/25 62815-021-04 Punchd VIS Given Date VIS Provided VIS Publication Date 03/08/25 Single Vaccine 24 Eligibility Eligibility Date Funding Source Not [facility] Eligible 03/08/25 Private Assessment & Plan Assessment & Plan Orders: Orders Influenza [id number] Immunization Today Z23 - Encounter for immunization Coding
== END 2025-03-08 13:19 | disposition home or self-care (01) ==
LOC: HO.HMCC 12:25
PROVIDERS: PCP Internal Medicine; Visit Provider Internal Medicine
DX: Z23 Encounter for immunization (principal)

== ENCOUNTER → 2025-03-08 12:25 | Outpatient (BNVA) | payer BC, SELFPAY | PROVIDERS: PCP Internal Medicine; Visit Provider Internal Medicine | DX: Z23 Encounter for immunization (principal) | CPT/HCPCS: 90471; 90656 ==